=== PATIENT | male | born 1950 | race Caucasian/White ===

== ENCOUNTER 2019-03-29 12:39 | Inpatient (IN) | payer OTHER ==
[~2019-03-29] VITALS: Ht 172.7 cm; Wt 79.7 kg
[2019-03-29] MEDS ORDERED: LIPITOR 20 MG T20 M1 PO (13:55)
[2019-03-29] MEDS ORDERED: ASPIR 8181 M1 PO (13:55)
[2019-03-29] MEDS ORDERED: BENZTROPINE MES1 MG PO (13:56)
[2019-03-29] MEDS ORDERED: CYMBALTA20 MG PO (13:59)
[2019-03-29] MEDS ORDERED: NEURONTIN300 MG PO (14:01)
[2019-03-29] MEDS ORDERED: NORVASC 2.5 MG2.5 M1 PO (14:02)
[2019-03-29 14:04] VITALS: BP 103/70
[2019-03-29] MEDS ORDERED: ZYPREXA7.5 MG PO (14:05)
[2019-03-29] MEDS ORDERED: CENTRUM SILVER1 EAC5 PO (14:07)
[2019-03-29] MEDS ORDERED: FISH OIL 1,0001 EAC9 PO (14:08)
[2019-03-29] MEDS ORDERED: ESKALITH CR450 MG PO (14:09)
[2019-03-29] MEDS ORDERED: NAPROSYN500 M1 PO (14:11)
[2019-03-29] MEDS ORDERED: WELLBUTRIN XL300 MG PO (14:12)
[2019-03-29] MEDS ORDERED: BUPROPION XL300 MG PO (14:15)
[2019-03-29] MEDS ORDERED: TRAZODONE 150150 M1 PO (14:18)
--- NOTE | 2019-03-29 15:19 | NUR ---
144 Patient new admit here from [facility] for suicidal ideations to jump in front of a truck. Patient calm cooperative, states he has not been taking his medication as perscribed. Patient had 2 episodes of incontience and felt it was from his medication. Patient stop taking medication as perscribed. Patient denies SI at present during assessment with nurse, we will continue to monitor patient for safety and behaviors.
[2019-03-29 19:50] VITALS: BP 122/66
--- NOTE | 2019-03-30 01:16 | NUR ---
PATIENT HAS BEEN LAYING IN BED AND SLEEPING SINCE I CAME ON SHIFT AT 1900. HE DID AWAKE EASILY FOR ASSESSMENT AND HS MEDS. PATIENT IS SLEEPING IN HIS CLOTHES OF JEANS AND A SHIRT. DID GET HIM SCRUB PANTS AND GOWN BUT HE REFUSED THEM. PATIENT HAS BEEN COOPERATIVE AND HAS TAKEN HIS MEDS WHOLE. HE DENIES PAIN. HE DENIES SI/HI. HE HAS BEEN CALM TONIGHT. PATIENT IS NOT A FALL RISK. HIS BED IS IN LOW POSITION. HIS VSS. WILL CONTINUE TO MONITOR.
--- NOTE | 2019-03-30 08:00 | NUR ---
PT STILL RESTING AT THIS TIME. PT DIDN'T WANT TO EAT BREAKFAST.
[2019-03-30 08:59] VITALS: BP 114/73
[2019-03-30 09:00] VITALS: BP 114/73
--- NOTE | 2019-03-30 11:11 | NUR ---
PT UP AT THIS TIME. PT TOOK MEDS WITHOUT ANY ISSUES. PT LUNGS CLEAR. PT STILL IN HIS ROOM.
--- NOTE | 2019-03-30 12:00 | NUR ---
PT UP TO EAT LUNCH.
--- NOTE | 2019-03-30 13:20 | NUR ---
PT BACK TO ROOM AFTER HE ATE LUNCH. NO SOCIALIZING WITH OTHER RESIDENTS.
[2019-03-30 16:43] LABS: HEMATOCRIT 42.8 % (42.0-52.0); HEMOGLOBIN 13.9 gm/dL (14.0-18.0); MCH 30.2 pg (26.0-34.0); MCHC 32.5 g/dL (28.0-37.0); MCV 92.8 fL (80.0-100.0); RBC 4.61 mil/uL (4.50-6.00); RDW 13.1 % (10.5-14.5); WBC 5.7 thou/uL (4.0-11.0)
[2019-03-30 16:58] LABS: ALBUMIN 3.8 g/dL (3.4-5.0); CALCIUM 9.7 mg/dL (8.5-10.1); CREATININE 1.1 mg/dL (0.7-1.3); MAGNESIUM 1.7 mg/dL (1.8-2.4); POTASSIUM 4.3 mmol/L (3.5-5.1); TOTAL BILIRUBIN 0.4 mg/dL (<0.1-1.0); TOTAL PROTEIN 6.7 g/dL (6.4-8.2)
[2019-03-30 17:18] LABS: CHOLESTEROL 156 mg/dL (<200); HDL CHOLESTEROL 49 mg/dL (>40); LDL CHOLESTEROL 86 mg/dL (<100); TC:HDL 3.2 Ratio (Not establshd); TRIGLYCERIDE 106 mg/dL (<150); VLDL 21 mg/dL (<40)
[2019-03-30 19:33] VITALS: BP 118/77
[2019-03-30 21:45] VITALS: BP 118/77
--- NOTE | 2019-03-30 23:01 | H ---
[facility] [place] [address] HISTORY AND PHYSICAL Name: KWABENA GENAO Room #: 526B-B ADM IN M.R.#: [id number] Admission: 03/29/19 Attend Phys: Huy Banks DO Discharge: Date of : 46 Report #: [id number] THIS REPORT FOR: //name// CC: Huy Banks [facility] unknown DATE OF SERVICE: 03/29/2019 INPATIENT PSYCHIATRIC EVALUATION ATTENDING PSYCHIATRIST: Huy Banks DO CLAIM CLERK: Ronan Bear MD REASON FOR ADMISSION: Transferred from [facility] with thoughts of killing himself, depressed, putting himself in front of a truck. HISTORY OF PRESENT ILLNESS: This is a 68-year-old male stating he resides independently in the community around [place], [place]. He was brought by EMS to [facility] for suicidal ideation. He has a history of bipolar 2 disorder with depressed features. He reportedly was followed at [facility] by a psychiatrist for the last 1-2 months, missed last appointment. Reports he was hospitalized in the fall. He states to me he was at [facility]. He stopped medications four days ago following an episode of enuresis, though patient did not dsicuss enuresis with me. Denied substance or alcohol use, denied thoughts of self-harm. Two days ago, developed suicidality, was considering running in front of a truck. Had first psychiatric admission. Diminished appetite. REVIEW OF SYSTEMS: From [facility] ER: CONSTITUTIONAL: Negative for fever or weight loss with anorexia. EYES: Negative visual disturbance, vision loss, blurred vision, watery eyes, photophobia. HENT: Positive for edentulous, thus no teeth. Negative sinus pressure, nasal congestion, rhinorrhea, ear pain or hearing loss. RESPIRATORY: Negative cough, shortness of breath, wheezing, dyspnea on exertion. CARDIOVASCULAR: Negative for chest pain or dyspnea, palpitations or near syncope. GASTROINTESTINAL: Negative for abdominal pain, heartburn, nausea, vomiting or diarrhea, constipation, bloating or rectal bleeding. GENITOURINARY: Positive for enuresis and urinary incontinence. Negative for dysuria, hesitancy or hematuria. HEMATOLOGIC/LYMPHATIC: Negative increased bruising, bleeding, swollen glands. ENDOCRINE: Negative for excessive hunger, excessive sweating, cold intolerance, [facility] [address] [place] [address] HISTORY AND PHYSICAL Name: AlonELIEKWABENA Room #: 526B-B [facility] IN M.R.#: [id number] Admission: 03/29/19 Attend Phys: Huy Banks DO Discharge: Date of : 46 Report #: [id number] hair loss. MUSCULOSKELETAL: Negative muscle pain, joint pain, muscle weakness. INTEGUMENTARY: Negative rash, petechia or dryness. NEUROLOGICAL: Negative numbness, tingling, muscle weakness, headache or syncope. PSYCHIATRIC: As above. PAST MEDICAL HISTORY: Overweight with a BMI of 28.9, bilateral neuropathy of the upper extremities with marked atrophy of the thenar eminence bilaterally, flatulence, mixed hyperlipidemia, hypertension, Past Psychiatric History: insomnia, psychiatric complaints, bipolar 2 disorder, history of suicide attempt. PAST SURGICAL HISTORY: Includes left knee arthroscopy with partial medial and lateral meniscectomy and chondroplasty on 08/19/2018, and tonsillectomy in 1953. HOME MEDICATIONS: Aspirin 81 mg p.o. daily, atorvastatin 20 mg p.o. daily, Cogentin 1 tablet p.o. b.i.d., Centrum Silver, Cymbalta 90 mg daily, fish oil 1000 mg 2 tabs p.o. b.i.d., gabapentin 300 mg tablet p.o. t.i.d., lithium carbonate 450 mg p.o. t.i.d., naproxen 500 mg p.o. b.i.d., Norvasc 5 mg p.o. daily, trazodone 200 mg p.o. daily at bedtime p.r.n., Wellbutrin-XL 300 mg p.o. daily, Zyprexa 7.5 mg p.o. daily at bedtime. PHYSICAL EXAMINATION: Grossly normal. There was mild psychomotor retardation. ALLERGIES: No known allergies. SOCIAL HISTORY: Denies alcohol. Denies tobacco. Denies illicit substance use. EDUCATIONAL HISTORY: One year college. Denies being or having children, states his disease case manager is Jose Goins. FAMILY HISTORY: Says on the ER sheet, negative for CHF, COPD, cancer, dementia, and diabetes. LABORATORY DATA: From the [facility] is as follows: White count 7.75, H and H 14.3 and 41.7, and platelet count 256. Electrolytes; glucose 134, BUN 25, creatinine 1.1, sodium 138, potassium 4.2, chloride 109, bicarbonate 26, anion gap 3, AST 28, ALT 59, alkaline phosphatase 56, calcium 9.8, magnesium 2.2. TSH 2.9, GFR greater than 60. Marana level was 1.0 as on 03/28/2019. EKG done in [facility] showed ventricular rate 63, RI interval 170, QRS 98, QTc 407. On interview today, gait: Normal gait and station. The patient did not have clear dyskinetic movements of his oral area given his lack of teeth. [facility] [address] [place] [address] HISTORY AND PHYSICAL Name: KWABENA GENAO Yessica Room #: 526B-B ADM IN .R.#: [id number] Admission: 03/29/19 Attend Phys: Huy Banks DO Discharge: Date of : 46 Report #: [id number] MENTAL STATUS EXAMINATION: This is a well-developed, disheveled male, appearing at least stated age. Attention limited. Concentration limited. Speech slow. Thought process is linear and goal directed. Thought content, relative poverty of thought. Some psychomotor retardation. No psychomotor agitation. Denied SI or HI. Denied hopelessness, helplessness. Memory: [facility] Mental Status Exam was performed. The patient scored a total of 12/30. Deficits, wide range, 1 off for orientation, 2 off for delayed memory. Second highest score on verbal fluency, 0 for 4 o'clock drawing. Could only do three digits in reverse digit span, missed I think 3/4 questions on the paragraph recall. Insight impaired, judgment impaired. Fund of knowledge well below average. FORMULATION: A 68-year-old male brought in for suicidal ideation. The patient has a history of 5-year placement in residential in [place], which he states took all his money. Also, reports he has a disease case manager, Jose Goins at [facility] DIAGNOSES: Bipolar 2 disorder by history, unspecified depression, major neurocognitive disorder likely. OTHER MORBIDITIES: Include upper extremity neuropathy, hyperlipidemia, and hypertension. PLAN: Evaluate, stabilize, obtain collateral. Ms. Arias, my colleague this weekend, placed the patient on duloxetine 30 mg daily, Cogentin 1 mg p.o. daily, amlodipine 5 mg p.o. daily, gabapentin 300 mg p.o. t.i.d., trazodone 100 mg p.o. daily at bedtime, olanzapine 15 mg p.o. daily at bedtime, naproxen 500 mg p.o. b.i.d., lithium carbonate 450 mg p.o. b.i.d. The patient will need lithium level in 4 days. Time spent on interview, evaluation, and coordination of care is at least 60 minutes. STRENGTHS: Insured and has community education specialist. WEAKNESSES: Advancing age, likely dementia, poor family support. ESTIMATED LENGTH OF STAY: 10-14 days. <ELECTRONICALLY SIGNED> By: Huy Banks DO 03/30/19 2301 [id number] Huy Banks DO /nt
--- NOTE | 2019-03-30 23:38 | NUR ---
PATIENT HAS BEEN IN HIS ROOM TONIGHT SLEEPING. HE IS WITHDRAWN FROM OTHERS. HE IS A/OX3-4. PATIENT DID HAVE A SHOWER ON THE DAY SHIFT TODAY. HE IS POLITE AND COOPERATIVE. HE HAS NOT HAD A BM FOR A FEW DAYS AND HIS BOWEL SOUNDS ARE HYPOACTIVE. MILK OF MAGNESIA GIVEN PO TO PATIENT. WILL MONITOR FOR RESULTS. PATIENT DOES TAKE HIS MEDS WHOLE. PATIENT AMBULATES ON HIS OWN AND IS CONTINENT OF B&b. PATIENT IS SLEEPING ALOT AND EATING WELL. HAS OCCASIONAL ACHE IN LEFT KNEE. PAIN RELIEVED WITH REPOSITIONING TONIGHT AND THEN HE HAD NAPROSYN IN HIS NIGHT MEDS. PATIENT DOES HAVE TREMORS IN HIS HANDS. BED IN LOW POSITION. CONTINUING TO MONITOR.
[2019-03-31 06:48] LABS: HEMATOCRIT 40.6 % (42.0-52.0); HEMOGLOBIN 13.3 gm/dL (14.0-18.0); MCH 30.1 pg (26.0-34.0); MCHC 32.7 g/dL (28.0-37.0); MCV 92.1 fL (80.0-100.0); RBC 4.41 mil/uL (4.50-6.00); RDW 13.1 % (10.5-14.5); WBC 4.7 thou/uL (4.0-11.0)
[2019-03-31 06:57] LABS: CALCIUM 9.2 mg/dL (8.5-10.1); MAGNESIUM 2.2 mg/dL (1.8-2.4); POTASSIUM 4.3 mmol/L (3.5-5.1)
[2019-03-31 08:30] VITALS: BP 142/79
--- NOTE | 2019-03-31 08:30 | NUR ---
PT UP AND OUT FOR BREAKFAST THIS AM. PT DOESN'T SOCIALIZE VERY MUCH, EATS AND GOES BACK TO HIS ROOM.
[2019-03-31 09:46] VITALS: BP 142/79
--- NOTE | 2019-03-31 14:14 | NUR ---
RAFAT met with pt in her office. He said that he was admitted to [facility] for SI. SW asked if he had a plan, and he said his plan was to walk [place] the [place] [place] ([address] and get hit by a car. He said he has had struggles with BiPolar depression since he was 14. He said he mostly feels okay because he walks 2-3 miles a day and lifts weights at home, but when his depression hits he has no energy to do those things. He said what kept him from doing so is his Brother; he has a close relationship with his oldest brother and he does not want him to be left to deal with pt taking his life. He said he does not currently have SI and feels better that way but is still experiencing some depression. He currently receives services at [facility] and gave his casemanagers information which is Jose Goins [phone]. While together RAFAT and pt contacted Jose, who did not answer. Pt said when he calls back he would like RAFAT to talk with Jose. He says overall he likes Jose. He is unsure if he wants RAFAT to talk with his brother only because he does not want his brother to worry about him. SW asked pt about his social life and he said he doesnt' really have one. He said he is Judaism and used to love going to confucianism but hasn't been; he wants to become more social when he "gets his stuff together." SW suggested to pt that maybe getting social now can help combat his depression. He said he will think about it. RAFAT received a call from Jose Goins (pts major case detective) who said he has been trying to contact pt for a couple days. He said he can help with pt being more social and agrees that would be a big help for pt. He said that pt is due for another psych appt in Mid April, but that SW can contact [facility] and get a sooner appt for pt. He said if pt does not d/c by Saturday he will come visit pt on Saturday. If he is not here, he will go visit pt at home first thing Saturday morning. SW team will continue to follow pt during his stay on this unit.
--- NOTE | 2019-03-31 16:43 | NUR ---
PT HAS BEEN IN ROOM MOST OF DAY EXCEPT FOR MEALS. PT ISOLATES IN ROOM, SOCIAL WITH STAFF, BUT NOT OTHER RESIDENTS EXCEPT FOR MEALS.
[2019-03-31 19:44] VITALS: BP 123/58
[2019-04-01 00:15] VITALS: BP 123/58
--- NOTE | 2019-04-01 03:29 | NUR ---
PT ISOLATING IN ROOM. SUPERFICIAL BUT COOPERATIVE. DEPRESSED WITH SAD EXPRESSION. MINIMAL INTERACTION WITH STAFF. TOOK HS MEDS PRESCRIBED W/O PROBLEM. HAS SLEPT WELL THROUGH THE NIGHT.
[2019-04-01 08:14] VITALS: BP 131/80
[2019-04-01 09:28] VITALS: BP 131/80
[2019-04-01 10:47] VITALS: BP 131/80
--- NOTE | 2019-04-01 11:54 | NUR ---
ASSUMED CARE AT 0700. PATIENT IS ALERT AND ORIENTED X4, BUT FORGETFUL. PATIENT HAS DX OF DEPRESSION/DEMENTIA. NO BEHAVIORS NOTED. UP IN THE MOLINA WAY TO THE DINING ROOM FOR MEALS. LUNGS ARE CLEAR. ABD IS SOFT WITH BSX4. LAST BM RECORDED WAS 03/28/19. PLAN LAXATIVE IF NO BM TODAY. NO EDEMA NOTED. FALL AND SAFETY PROTOCOLS IN PLACE. DENIES ANY PAIN. ATTENDED GROUP. WILL CONTINUE TO MONITER.
[2019-04-01 19:31] VITALS: BP 129/74
[2019-04-01 21:00] VITALS: BP 129/74
--- NOTE | 2019-04-01 23:49 | NUR ---
PATIENT IN BED TONIGHT WHEN CAME ON SHIFT. HE IS A/O X 4. HE HAS NOT HAD A BM SINCE BEING HERE. MOM PRN GIVEN AT HS. PATIENT STATES HE ATTENDED ALL BUT ONE GROUP TODAY. HE DENIES PAIN. VSS. BED IN LOW POSITION. POSITIVE OUTLOOK ON LIFE TONIGHT. CONTINUE TO MONITOR.
--- NOTE | 2019-04-02 05:36 | NUR ---
PATIENT IS STILL SLEEPING COMFORTABLY IN BED. HAS NOT BEEN UP ALL NIGHT. CONTINUING TO MONITOR.
[2019-04-02 09:18] VITALS: BP 119/71
--- NOTE | 2019-04-02 10:35 | NUR ---
CONSTRICTED AFFECT AND MINIMAL VERBAL RESPONSES DURING INITIAL AM ASSESSSMENT-DYSPHORIC MOOD-APPEARS SLIGHTLY UNKEMPT-UNSHAVEN CLOTHING RUMPLED WHEN ASKED IF WOULD LIKE TO GET SHAVE OR CLEANED UP STATES "NO STATING NOT REALLY FEELING UP TO IT" WHEN INQUIRED FURTHER RE THIS IS VAGUE C/O GENERAL MALAICE AND UNABLE TO IDENTIFY ANY SPECIFIC SYMPTOMS. DID ATTEND AM GROUP WITH PROMPTING BUT LITTLE NOTED INTERACTION WITH PEERS OR PARTICIPATION IN GROUP. DENIES SI/SH/HI.
[2019-04-02 19:22] VITALS: BP 98/55
--- NOTE | 2019-04-03 05:31 | NUR ---
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 HAS BEEN ISOLATING TO ROOM, SLEEPING ENTIRE SHIFT. PLEASANT AND COOPERATIVE WHEN WOKEN FOR ASSESSMENT AND FOR MEDS. AFFECT FLAT, MOOD DEPRESSED. DENIES PAIN THIS SHIFT. NO C/O. NO APPARENT DISTRESS. WILL CONTINUE TO MONITOR
--- NOTE | 2019-04-03 09:43 | NUR ---
SW contacted pt's manager rn case Jose Goins. No answer. Lft message. SW team will continue to follow pt during his stay on this unit.
--- NOTE | 2019-04-03 12:21 | NUR ---
RAFAT received a call from Jose Goins who said he would like to visit with pt today on his way home; it will be sometime in the afternoon. RAFAT okayed this with the psych doctor for him to visit even outside of visin hours since he is pt's case finisher and a part of his d/c plan. RAFAT provided an update to pt's nursing staff and SW team. RAFAT contacted the [facility] in [place] and scheduled a crisis appt for pt on 04/14 @ 1700. RAFAT team will continue to follow pt during his stay on this unit.
--- NOTE | 2019-04-03 17:20 | NUR ---
HAS BEEN WITHDRAWN TO ROOM DESPITE PROMPTING AND ENCOURAGEMENT TO COME OUT FOR GROUPS-DID COME FOR APPROX 15 MINUTES OF AM RT GROUP BEFORE RETURNING TO ROOM. WILL VISIT WITH ROOMMMATE AND DOES COME OUT TO EAT MEALS WHEN PROMPTED. REFUSED SHOWER STATING HE HAD CLEANED UP AT [facility] TODAY BUT DID ALLOW THIS NURSE TO SHAVE HIM-APPETITE GOOD. SLEEPING EXCESSIVLY,REQUIRES QUEING AND PHYSICAL ASSIST FOR ALL ADLS' DOES NOT INITIATE THEM ON OWN. ORIENTED TO PLACE,SELF-NO TO DATE. GAIT SLIGHTLY UNSTEADY AT TIMES WHEN GOING LONG DISTANCES IN HALLWAY. CONSTRICTED AFFECT. DENIES SI/SH.
[2019-04-03 20:03] VITALS: BP 127/85
--- NOTE | 2019-04-04 03:01 | NUR ---
ASSUMED CARE OF PATIENT ON 04/03/2019 AT APPROXIMATELY 1915. UPON ONE TO ONE WITH THIS PATIENT, HE WAS IN HIS ROOM ISOLATING TO HIMSELF AND NOT GOING OUT TO JOIN THE MILIEU. HE WAS OBSERVED INTERACTING MINIMALLY WITH HIS ROOMMATE. HE WOULD NOT ELABORATE MUCH ON FEELINGS OR THOUGHTS BUT DENIES DEPRESSION ET AXNIETY. HE DENIES SI HI OR HALLUCINATIONS. HE DID NOT REPORT ANY MEDICAL CONCERS NOR DID HE APPEAR IN DISTRESS. NURSING WILL MAINTAIN Q12 CHECK TO ENSURE SAFETY AT ALL TIMES.
[2019-04-04 08:17] VITALS: BP 133/61
[2019-04-04 09:18] VITALS: BP 133/61
--- NOTE | 2019-04-04 12:00 | NUR ---
ASSUMED CARE AT 0700 THIS MORNING. PT. STABLE. HE CONTINUES TO BE ISOLATIVE IN HIS ROOM. ATE ON THE UNIT THE RETURNED RIGHT AWAY TO HIS ROOM. TOOK A SHOWER THIS MORNING.
[2019-04-04 19:06] VITALS: BP 144/73
--- NOTE | 2019-04-05 00:17 | NUR ---
ASSUMED CARE OF PATIENT ON 04/04/2019 AT APPROXIMATELY 1915. DURING INITIAL INTERACTION WITH PATIENT HE WAS IN HIS ROOM, IN BED WITH EYES CLOSED. THEY OPENED SPONTANEOUSLY TO THIS NURSES VOICE. HE REPORTS 'IM DOING PRETTY GOOD.' THIS NURSE ENCOURAGED PATIENT TO JOIN MILIEU AND EAT SNACK, BUT PATIENT DECLINED. PATIENT IS MEDICATION COMPLIANT. AFTER ADMINISTRATION, PATIENT THEN LAYED BACK DOWN AND CLOSED EYES. HE DID NOT REPORT MEDICAL CONCERNS NOR DID HE APPEAR IN DISTRESS. NURSING WILL MAINTAIN ALL PRECAUTIONS TO ENSURE SAFETY AT ALL TIMES.
[2019-04-05 07:52] VITALS: BP 97/64
--- NOTE | 2019-04-05 09:19 | NUR ---
ASSUMED CARE AT 0700 THIS MORNING. PT. IN HIS BED, REFUSED TO GET UP FOR BREAKFAST. HE DID, HOWEVER, TAKE HIS MEDICATIONS WITHOUT DIFFICULTY. HE WAS COMPLIANT WITH ASSESSMENT. HAS LOUNGED IN BED THIS MORNING. DENIES PAIN OR DISCOMFORT. STATES BOWELS MOVED YESTERDAY.
[2019-04-05 09:28] VITALS: BP 97/64
[2019-04-05 19:18] VITALS: BP 116/62
[2019-04-05 21:30] VITALS: BP 116/62
--- NOTE | 2019-04-06 04:02 | NUR ---
PATIENT HAS BEEN IN BED ALL NIGHT. HE HAS BEEN CALM AND COOPERATIVE. ORDER OBTAINED FOR MAG [employer] QD PRN FOR CONSTIPATION. PATIENT TO D/C TODAY TO HOME WITH . DENIES PAIN. BED IN LOW POSITION. CONITINUING TO MONITOR.
[2019-04-06 07:05] VITALS: BP 148/84
[2019-04-06 11:24] VITALS: BP 148/84
[2019-04-06] MEDS ORDERED: CYMBALTA30 MG PO (11:51)
[2019-04-06] MEDS ORDERED: GABAPENTIN 100100 MG PO (11:51)
[2019-04-06] MEDS ORDERED: TRAZODONE HCL100 MG PO (11:52)
[2019-04-06] MEDS ORDERED: ZYPREXA 5 MG TAB5 M1 PO (11:53)
[2019-04-06] MEDS ORDERED: ESKALITH300 MG PO (11:53)
[2019-04-06] MEDS ORDERED: BENZTROPINE MES1 MG PO (11:54)
[2019-04-06] MEDS ORDERED: COLACE 100 MG100 MG PO (11:54)
[2019-04-06 12:45] VITALS: BP 148/84
[2019-04-06 13:15] VITALS: BP 148/84
--- NOTE | 2019-04-06 13:20 | NUR ---
DISCHARGE INSTRUCTIONS REVIEWED WITH PATIENT-INCLUDING MEDICATIONS DOSES TIMES OF ADMINISTRATION AND RX-FOLLOW UP RECOMMENDATIONS AND APPOINTMENTS REVIEWED AND STSTES UNDERSTANDING DENIES QUESTIONS AND CONCERNS RE FOLLOW UP-. SUICIDE PREVENTION NUMBERS PROVIDED. PT STATES "FEELS GOOD" AND IS "READY TO GO" SMILING AND EXPRESSING APPRECIATION OF CARE ON DC. TRANSPORTED OFF UNIT AT APPROX 1255 BY THIS RN IN TO AWAITING TAXI VIA
--- NOTE | 2019-04-06 14:33 | NUR ---
RAFAT D/C note RAFAT contacted KATHARINE zuly and scheduled a ride for pt at 1300. RAFAT faxed d/c to [facility] at [phone]. RAFAT gave pt a printout of when his next psych appt is which is 04/14 @6550. No other needs for RAFAT team to address at this time.
--- NOTE | 2019-04-09 19:58 | D ---
[facility] [place] [address] [place] [address] DISCHARGE SUMMARY Name: KWABENA GENAO Room #: 526B-B [facility] IN M.R.#: [id number] Admission: 03/29/19 Attend Phys: Huy Banks DO Discharge: 04/06/19 Date of : 46 Report #: [id number] THIS REPORT FOR: //name// CC: Huy Banks [facility] unknown DATE OF SERVICE: 04/06/2019 INPATIENT PSYCHIATRIC DISCHARGE SUMMARY ATTENDING PHYSICIAN: Huy Banks DO. HEALTH INFORMATION TECHNICIAN: Lex Read M.D. DISCHARGE DIAGNOSES: Bipolar 1 disorder, most recent episode depressed, severe, improved, mild neurocognitive disorder. MEDICAL COMORBIDITIES: Hypertension, hyperlipidemia, GERD. Discharged on a regular diet. ACTIVITY LEVEL: As tolerated. The patient receives case management from [facility], his community case manager is Jose Goins, Jose Goins did not present for a family caregiving meeting as I had hoped this past Saturday. DISCHARGE MEDICATIONS: Gabapentin 300 mg p.o. t.i.d. for neuropathy, duloxetine 60 mg p.o. daily for depression, trazodone 100 mg p.o. at bedtime for sleep, olanzapine 15 mg p.o. at bedtime for augmentation of antidepressant, mood stabilization, lithium carbonate 300 mg p.o. b.i.d., this was decreased from 450 mg p.o. b.i.d. due to excessive tremor and blood level of 1.2, Cogentin 1 mg p.o. daily, docusate 100 mg p.o. b.i.d. Also, continuing aspirin 81 mg p.o. daily for cardioprotection, amlodipine besylate 5 mg p.o. daily for hypertension, naproxen 500 mg p.o. b.i.d., actually this should only be used p.r.n. because he is on lithium and can cause difficulty maintaining even blood level. REASON FOR ADMISSION: Back on 03/29/2019 transferred from [facility] with thoughts of killing himself, throwing himself in front of truck. HOSPITAL COURSE: The patient was admitted to Geriatric Psychiatry Unit. The patient had some findings concerning for a neurodegenerative disorder; however, at the moment is needing minimal requirements to live in the community with some assistance. During the course of hospitalization, mood improved, sleep improved, appetite was good. At the day of discharge, he was not suicidal or homicidal, felt to be ready for lower level of care. [address] [address] DISCHARGE SUMMARY Name: KWABENA GENAO Room #: 526B-B [facility] IN [facility].#: [id number] Admission: 03/29/19 Attend Phys: Huy Banks DO Discharge: 04/06/19 Date of : 46 Report #: [id number] PHYSICAL EXAMINATION: VITAL SIGNS: On the day of discharge, temperature 36.6, pulse 50, respirations 18, BP 148/84. MUSCULOSKELETAL: Normal gait and station. The patient is edentulous. MENTAL STATUS EXAMINATION: This is a well-developed, fairly nourished male, appearing stated age. Attention fair. Concentration fair. Speech is normal rate. Thought process linear and goal oriented. Thought content, focused on discharge. No psychomotor agitation, no psychomotor retardation. Denied SI or HI. Denied hopelessness, helplessness. Denied auditory, visual, or tactile hallucinations. Memory not formally tested. Insight fair to limited. Judgment fair. Fund of knowledge below average. LABORATORY DATA: This admission, 03/31/2019, last H and H was 13.3 and 40.6, white count 4.7, platelet count 226; 03/31/2019 on the CMP: BUN was 23, anion gap 2. Otherwise, within normal limits. potassium 4.3. Toxicology from 04/02/2019 as stated was 1.2 on 450 mg twice per day. PROGNOSIS: For this patient is guarded given the likelihood of involving neurodegenerative disorder, limited social support. <ELECTRONICALLY SIGNED> By: Huy Banks DO 04/09/191957 51 11 Huy Banks DO /nt
== END 2019-04-06 13:00 | disposition home or self-care (01) | DRG 885 ==
LOC: SBH 12:39
PROVIDERS: Internal Medicine; ADMIT Psychiatry & Neurology Psychiatry
DX: F31.4 Bipolar disorder, current episode depressed, severe, without psychotic features (principal); F01.50 Vascular dementia, unspecified severity, without behavioral disturbance, psychotic disturbance, mood disturbance, and anxiety; R45.851 Suicidal ideations; I10 Essential (primary) hypertension; K21.9 Gastro-esophageal reflux disease without esophagitis; G62.9 Polyneuropathy, unspecified; M19.90 Unspecified osteoarthritis, unspecified site; G47.00 Insomnia, unspecified; E78.2 Mixed hyperlipidemia; Z91.5 Personal history of self-harm; Z79.82 Long term (current) use of aspirin; Z79.899 Other long term (current) drug therapy; Z80.9 Family history of malignant neoplasm, unspecified; Z82.49 Family history of ischemic heart disease and other diseases of the circulatory system; Z83.6 Family history of other diseases of the respiratory system
CPT/HCPCS: 10880

== ENCOUNTER 2019-10-15 10:03 | Inpatient (IN) | payer OTHER ==
[~2019-10-15] VITALS: Ht 175.3 cm; Wt 79.9 kg
[~2019-10-15 10:03] MED LIST: ASPIR 8181 M1 PO; BENZTROPINE MES1 MG PO; BUPROPION XL300 MG PO; CENTRUM SILVER1 EAC5 PO; COLACE 100 MG100 MG PO; CYMBALTA20 MG PO; CYMBALTA30 MG PO; ESKALITH CR450 MG PO; ESKALITH300 MG PO; FISH OIL 1,0001 EAC9 PO; GABAPENTIN 100100 MG PO; LIPITOR 20 MG T20 M1 PO; NAPROSYN500 M1 PO; NEURONTIN300 MG PO; NORVASC 2.5 MG2.5 M1 PO; TRAZODONE 150150 M1 PO; TRAZODONE HCL100 MG PO; WELLBUTRIN XL300 MG PO; ZYPREXA 5 MG TAB5 M1 PO; ZYPREXA7.5 MG PO
[2019-10-15 11:07] VITALS: BP 11/68
--- NOTE | 2019-10-15 11:21 | NUR ---
68 YEAR OLD MALE ARRIVES TO UNIT VIA CART ACCOMPNIED BY AMBULANCE PERSONEL FROM [facility] ER. REPORTED TO HAVE ARRIVED TO ER ON SATURDAY WITH REPORTED SUICIDAL IDEATION WITH PLAN TO WALK INTO TRAFFIC. UPON ARRIVAL TO UNIT IS COOPERATIVE WITH ADMISSION ASSESSMENT VS/HT/WT OBTAINED AND ARE STABLE. MILDLY CONSRICTED AFFECT. RESPONSES ARE APPROPRIATE AND ABLE TO PROVIDE GOOD PART OF MEDICAL HX. UNABLE TO STATE ALL OF MEDS STATING "I CAN'T REMEMBER ALL OF THEM" GAIT STEADY WITHOUT ASSISTIVE DEVICES. DOES REPORT SOME MILD LEFT KNEE PAIN RATED A 4 ON 1-10 SCALE.
[2019-10-15 19:15] VITALS: BP 108/69
--- NOTE | 2019-10-15 21:52 | H ---
[facility] [place] [address] HISTORY AND PHYSICAL Name: KWABENA GENAO Room #: 523B-B ADM IN M.R.#: [id number] Admission: 10/15/19 Attend Phys: Huy Banks DO Discharge: Date of : 46 Report #: [id number] THIS REPORT FOR: cc: ANTONIA - Family physician unknown FAM - Family physician unknown Huy Banks DO ~ CC: Huy KNIGHT unknown DATE OF SERVICE: 10/15/2019 INPATIENT PSYCHIATRIC EVALUATION ATTENDING PHYSICIAN: Huy Banks DO BRAKE PRESS OPERATOR: Ronan Bear MD REASON FOR ADMISSION: Transfer from [facility] Emergency Room for suicidality. SOURCES OF INFORMATION: [facility] records, screen from [facility], interview with the patient, historical records from 03/2019 when the patient had a Geriatric Psychiatry admission here at [facility]. HISTORY OF PRESENT ILLNESS: This is a 69-year-old single male living in the community by himself, [place], [place]. The patient was brought to [facility] yesterday by [facility] social service director. Apparently, he voiced suicidal ideation earlier in the day and was brought for voluntary placement. He says he has been depressed for several days. He thought about running in front of a semi. This has been the same plan of suicide he had previously back in March of this year. In the past, I think in 2007, he had a suicide attempt by carbon monoxide with vehicle exhaust. He denied medical complaints at this time. REVIEW OF SYSTEMS: From [facility] ED was negative on a 10-point. ALLERGIES: Otherwise, no known allergies. PAST MEDICAL PROBLEMS: Hypertension, bilateral neuropathy of the upper extremities, mixed hyperlipidemia and primary insomnia. BMI looks pretty normal to me. PAST SURGICAL HISTORY: Left knee arthroscopy with partial medial and lateral meniscectomy and chondroplasty on 08/19/2018 at 68 years of age. He had a tonsillectomy in 1953 at 2 years of age. [facility] [address] [place] [address] HISTORY AND PHYSICAL Name: KWABENA GENAO Room #: 523B-B ADM IN ..#: [id number] Admission: 10/15/19 Attend Phys: Huy Banks DO Discharge: Date of : 46 Report #: [id number] FAMILY HISTORY: He has a family medical history of hypertension in his father and mother. SUBSTANCE USE HISTORY: Denied. SOCIAL HISTORY: He reportedly walks daily 3 miles, so that is good. PHYSICAL EXAMINATION: Was grossly normal at [facility]. I did do a medical clearance workup and I will review that briefly here. Urine drug screen was negative. Urinalysis was within normal limits. Glucose 110, BUN 27, creatinine 0.9. Sodium 148, potassium 4.2, chloride 109, bicarbonate 28, anion gap 3, calcium 9.3. Alcohol less than 3. Magnesium 2.2, which I believe is normal. TSH 0.853, GFR was greater than 60, blood count slightly low, leukocytes with a white count of 3.8, H and H 14.1 and 40.9, platelet count 205. ADDITIONAL INFORMATION: From the [facility] screen as follows and pretty much cloudiness. Presented to the ED after endorsing SI, expressing that he feels severely depressed. The patient is accompanied by two of his [facility] team members, so he does have case management. The patient endorses depressed mood and fleeting SI on 10/12/2019; however, denied active SI. Medications were modified on 09/25/2019 during the patient's most recent hospitalization and he continues to titrate up on Lamictal. I am not exactly sure where he was hospitalized on 09/25/2019, but that demands more exploration. Anyways, the patient reportedly ran out of his medications this past weekend resulting in increasing symptomatology. During the assessment the patient endorses active SI with plan to "jumping in front of a big transport truck, this is the only plan I have ever had" and expresses inability to be free of depression, verbalizes how ____ become for him. The patient shares ruminating and obsessive thoughts that this "could be the end, I guess suicide " and stating "I don't know if I am ever going to get better function like I used to." The patient acknowledges having a conversation with his treatment team yesterday, discussing on his depressive symptoms, plan to divert hospitalization; however, shares it came on all of a sudden in day. He is unable to identify specific triggers and reports that his brother has recently expressed his concern and worry for the patient as he viewed him as being depressed and not functioning well. The patient endorses an increased lack of energy and fatigue; however, in contrast, reports he is sleeping well because of prescribed trazodone. He states he has been taking his medications as prescribed and believes that the regimen incorrect ''or why else would I be feeling this way." Denied auditory or visual hallucinations and alcohol use, though he admitted to me a week ago drinking a beer. He identifies decrease in appetite onset 1 week ago, eating one meal per day, remaining hydrated, showering every couple of days. The patient shares the last time he recalls [facility] [address] [place] [address] HISTORY AND PHYSICAL Name: KWABENA GENAO Room #: 523B-B ADM IN ..#: [id number] Admission: 10/15/19 Attend Phys: Huy Banks, Discharge: Date of : 46 Report #: [id number] feeling happy was in 11/2018 when he travel to the [place] with his brother. Interestingly, he told me he [place] in [place], [place]. He expressed concerns with returning home today, "I won't do well if I go home" and hospitalization was recommended. Vital signs here at [facility]: Temperature 36.9, pulse 65, respirations 12. I think the BP is incorrect, it says 11/68 and that is non-compatible with life. Let me see what it was at [facility], 141/74, pulse 57, respirations 16, temperature 36.1 there, so I think [facility] had the more accurate blood pressure in this case. Physical exam, normal gait and station. MENTAL STATUS EXAMINATION: This is a well-developed, somewhat unkempt, unshaven male. He is edentulous, appearing older than stated age. Attention fair. Concentration limited. Speech is normal rate. Thought process is linear and goal directed. Thought content focused on ameliorating his depression. No psychomotor agitation, slight psychomotor retardation. Denied suicidal or homicidal ideation currently. Denied auditory, visual, or tactile hallucinations. Denied helplessness. Denied hopelessness. Memory not formally tested, but will be with a [facility] Mental Status examination. Insight is limited. Judgment limited. Fund of knowledge, no greater than average. FORMULATION: A 69-year-old male, client of [facility], who was brought by his community care team sounds like basically an assertive community treatment team for Emergency Room evaluation due to active suicidal ideation with plan to end his life. He has a number of complicating factors including limited social support. It sounds like some compliance issues. DIAGNOSES: At this time, bipolar 1 disorder, most recent episode depressed, chronic mental illness. His medical problems include hypertension and neuropathy. PLAN: The patient is unsure of his exact medication regimen. We did get a sheet from [facility]. I think we need to simplify medications for purposes of [place] here, we will keep him on escitalopram 10 mg p.o. daily, duloxetine is something that he has probably been on secondary to his pain, so I am going to stop that. We will continue aspirin 81 mg daily, Norvasc 5 mg p.o. daily, trazodone 100 mg at bedtime. We will continue his atorvastatin 20 mg at bedtime. Gabapentin was at an [id number]-qon-yuay 100 mg twice a day, we will make that 200 mg 3 times a day. We will evaluate and stabilize. I would like to reach out to his treaters at [facility]. Also, we will need to repeat a cognitive screen. I am concerned about a neurodegenerative disorder in light of some of the accountability issues we are having and I did look back, he had a SLUMS score of 12 at the beginning of his March hospitalization here. [address] [address] HISTORY AND PHYSICAL Name: KWABENA GENAO Room #: 523B-B ADM IN M.R.#: [id number] Admission: 10/15/19 Attend Phys: Huy Banks DO Discharge: Date of : 46 Report #: [id number] Time spent on interview, review of records, coordination of care is at least 60 minutes, greater than 50% of this time was spent on counseling and coordination of care. <ELECTRONICALLY SIGNED> By: Huy Banks DO 10/15/19 [id number] Huy Banks DO /nt
[2019-10-15 22:55] VITALS: BP 108/69
--- NOTE | 2019-10-16 02:08 | NUR ---
Assumed care of patient this pm shift. Patient is in good spirits, calm and cooperative. Patients affect is euthymic. Patient states that he would like to know more about things that could help his bipolar diagnosis such as ketamine. Patient was encouraged to discuss these things with the doctor. Patient is medication adherent and takes medications whole with thin fluids. Patient is ambulatory with a steady gait and is not a falls risk. Patient denies pain. Patient denies hi/si. Patients assessment shows no signs of acute distress. Patient has no other concerns than finding the best treatment for his condition and was happy to discuss this. We will continue to monitor patient per hospital policy.
[2019-10-16 07:30] VITALS: BP 115/75
--- NOTE | 2019-10-16 12:30 | NUR ---
Alert and orientated X4. Denies SI/HI. Calm and compliant, cooperative with meds. Spent most of AM in dining room with peers watching TV. Requested Tylenol for L knee pain. Stated pain is sporadic, sharp. When Tylenol given pain was "0" but he stated it would increase to 9 for short periods. Also has questions about ketamine. Breath sounds clear t/o. Reg HR auscultated. Color pink with brisk capillary refill and palpable peripheral pulses. Independent with voiding. Active bowel sounds over soft, rounded abdomen. States last BM was several days ago, prior to admission. Will give Milk of Magnesia as PRN after lunch. Ambulates with regular, steady gait.
--- NOTE | 2019-10-16 12:41 | NUR ---
Assess due to high nutrition risk identified. Admit to [facility] for bipolar disorder. Visit during lunch, pt has no teeth, does not wear any dentures and appears to struggle with mastication. He did agree to trial [facility] altered chopped diet. Able to give some preferences and would like to have karolina ensure-so ordered. States usual wt 185 lb about a yr ago. Wt hx reviewed in computer and was 177 lb in Mar and now 175 lb, so stable x 6 mo. Appetite is good. Will follow wts and intake trends weekly. Low nutrition risk
[2019-10-16 20:02] VITALS: BP 114/69
--- NOTE | 2019-10-16 22:18 | NUR ---
PT ASLEEP IN ROOM UPON ARRIVAL TO SHIFT. PT AWAKENED FOR ASSESSMENT AND MEDICATIONS. PT REQUESTED [facility] FOR SNACK. FLAT AFFECT, GOOD EYE CONTACT, PT VERY POLITE SAYING THANK YOU OFTEN.
[2019-10-17 07:49] VITALS: BP 113/82
--- NOTE | 2019-10-17 09:15 | NUR ---
Assumed care 0700. Compliant with medications. Self fed breakfast. Isolates to room.
--- NOTE | 2019-10-17 18:11 | NUR ---
Compliant with medications. beginning to socialize with select male peers. Given Tyleno. and 1 with partial relief. Diclofenac to left knee with relief. Rated mood 8/10 0=good mood 10 = worst mood. States he is feeling depressed and does not have an idea why what triggers his depression.
[2019-10-17 19:26] VITALS: BP 126/81
--- NOTE | 2019-10-17 22:49 | NUR ---
Care assumed of patient at 1915: Patient sleeping in bed at start of shift. Easily aroused. Patient calm, pleasant and cooperative. Patient came to the dayroom for HS snack. Patient confused and forgetful. Disorganized, brief attention span. Patient alert and oriented to name only. Patient having expressive aphasia. When asked current place, he could not answer. When provided the option of school, bank or hospital, patient started to name years "the 60s? 70s? I don't know". Patient was oriented to current location, time and situation. When oriented he would state "Oh, I know". Patient reports pain to left knee when walking. Denies wanting pain medication. Reports better after massage provided. Denies SI/HI/AH/VH. Reports anxiety but was unable to rate. Denies depression. Took HS medication whole without difficulty. Ate 100% HS snack. Patient was able to retire to bed and fall asleep without difficulty. Resting quietly at this time.
[2019-10-18 07:43] VITALS: BP 117/75
--- NOTE | 2019-10-18 12:24 | NUR ---
0700 ASSUMMED CARE OF PATIENT PATIENT IN BED AT THAT TIME. PATIENT IN DAYROOM FOR BREAKFAST. DENIED NEEDS AT THAT TIME. 0850 MEDICATION TAKEN WHOLE WITHOUT DIFFICULTY. PATIENT TO BEDROOM AFTER BREAKFAST. 1200 PATIENT LYING IN BED AWAKE. PATIENT STATES HAVING DEPRESSION OFF AND ON WITH PAST SI THOUGHTS. NO SI THOUGHTS OR PLANS AT THIS TIME. PATIENT C/O DEPRESSION DUE TO SITUATION AND POSSIBLY GOING TO FACILITY. PATIENT STATES "I WAS LIVING AT HOME BEFORE GOING TO ER, HOPING TO BE ABLE TO GO BACK". PATIENT UNDERSTANDS REASON FOR ADMISSION STATING THAT HIM VOICING SI GOT HIM HERE. WILL CONTINUE TO OBSERVE
[2019-10-18 19:42] VITALS: BP 139/83
[2019-10-18 21:30] VITALS: BP 139/83
--- NOTE | 2019-10-18 23:05 | NUR ---
PATIENT STAYED IN HIS ROOM TONIGHT. HE WAS WITH C/O LEFT KNEE BOTHERING HIM. HE STATES IT ACHED. PATIENT GIVEN TYLENOL 650MG PO WITH HIS HS MEDS. PATIENT ALSO HAD GABAPENTIN A SCHEDULED HS MED TOO. PATIENT STATES HE IS NOT SUICIDAL BUT SAYS HE IS FEELING DEPRESSED TONIGHT. HE STATES HE HAS A HARD TIME TONIGHT REMEMBERING HIS GOOD DAYS. HE DENIES SUICIDAL THOUGHTS BUT STATES HE JUST FEELS HOPELESS. HE STATES HE CAN'T SHUT HIS THOUGHTS OFF OF SAD THOUGHTS. TALKED WITH PATIENT FOR AWHILE AND HE STATES HE FELT BETTER TALKING ABOUT HIS FEELINGS. TRAZADONE GIVEN FOR SLEEP. PATIENT IS SLEEPING AT THIS TIME. ROUTINE ROUNDS TO ASSESS SAFETY AND STATUS OF PATIENT.
[2019-10-19 07:25] VITALS: BP 113/71
--- NOTE | 2019-10-19 09:30 | NUR ---
0700 ASSUMED CARE OF PATIENT, PATIENT LYING IN BED WITH EYES CLOSED. 0800 PATIENT REFUSES TO COME OUT FOR BREAKFAST STATES "I HAD A ENSURE ALREADY". PATIENT WANTS TO CONTINUE LAYING IN BED AND REFUSES TO ATTEND GROUP. 0935 'S ORDERS FOR ROOM LOCK OUT DURING MEALS AND GROUPS RECIEVED.
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
--- NOTE | 2019-10-19 18:36 | NUR ---
PATIENT RESTING IN BED, REFUSED HIS DICLOFENAC TOPICAL TO HIS KNEE. PATIENT STATES THE OLANZAPINE 5MG PO DID NOTHING FOR HIM AND ASKS THAT HE BE GIVEN SOMETHING ELSE. CONTINUES TO FEEL IF HIS THOUGHTS ARE ACCELERATED STILL. WILL REPORT OFF TO ON COMING SHIFT.
[2019-10-19 19:58] VITALS: BP 125/79
[2019-10-19 20:45] VITALS: BP 125/79
--- NOTE | 2019-10-20 00:17 | NUR ---
PATIENT TOOK A SHOWER THIS EVENING AND THEN CAME OUT TO DINING ROOM FOR HS SNACK. HE SAT AND VISITED WITH 3 OTHER MALE PATIENTS AND WATCHED TV FOR ABOUT AN HOUR BEFORE RETURNING TO HIS ROOM FOR THE NIGHT. HE DENIES PAIN. HE STATES HE IS FEELING MORE POSITIVE AND ENERGIZED SINCE HE TOOK THE OLANZAPINE 5MG ON DAY SHIFT. HE STATES HE WANTS TO STAY POSITIVE AND IS FEELING HOPE NOW AND REMEMBERING GOOD THINGS. HE STATES HE WANTS TO KEEP GOOD THOUGHTS IN HIS MIND. PATIENT DID REFUSE HIS DICLOFENAC FOR HIS LEFT KNEE TONIGHT. HE HAS BEEN EUPHORIC TONIGHT AND COOPERATIVE. NEW ORDER RECEIVED TO BEGIN OLANZAPINE 2.5MG PO BID STARTING IN AM. PATIENT IS SLEEPING AT THIS TIME. ROUTINE ROUNDING TO ASSESS STATUS AND SAFETY OF PATIENT.
[2019-10-20 07:31] VITALS: BP 134/87
[2019-10-20 08:30] VITALS: BP 134/87
--- NOTE | 2019-10-20 09:08 | NUR ---
PT FINISHED BREAKFAST AT THIS TIME AND BACK TO BED. PT STATED HE HAS BEEN FEELING REALLY DEPRESSED LATELY. PT WANTING MEDICATION TO WORK. PT LBM 10/16 PT IS EATING AND TAKING MEDS WITHOUT ANY ISSUES. PT DOES SEEM ANXIOUS.
--- NOTE | 2019-10-20 11:34 | NUR ---
SW met with pt to complete the SLUMS last week and he scored a 14/30. SW completed the intake assessment but failed to enter into EHR timely. TP was completed today. Sw met with pt again today, as he declined the neuropsych testing yesterday. SW asked him about changing this living arrangements, and he would like to consider an RCF. SW reached out to [facility] to start the medicaid applicaiton and called [facility], and sent the referral there [phone]. Pt admits he's still not feeling better, d/c could be next week.
--- NOTE | 2019-10-20 12:01 | NUR ---
PT SITTING OUT IN DINING ROOM. PT STATED HE USED TO WORK AT A [employer]. PT STILL SEEMS A LITTLE NERVOUS.
--- NOTE | 2019-10-20 15:05 | NUR ---
PT COMPLIANT WITH MEDS AND ATTENDING GROUPS. PT KNOWS ABOUT BEING LOCKED OUT FOR GROUPS AND MEALS.
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
--- NOTE | 2019-10-20 17:05 | NUR ---
ADM LORAZEPAM 0.5MG PO FOR ANXIETY. PT HAS BEEN ASKING ALL DAY FOR SOMETHING FOR ANXIETY. DR. HATCH AWARE AND ORDERED ATIVAN X1.
[2019-10-20 20:08] VITALS: BP 138/84
[2019-10-20 21:00] VITALS: BP 138/84
--- NOTE | 2019-10-21 02:20 | NUR ---
PATIENT WAS UP IN DINING ROOM TONIGHT VISITING WITH OTHER MALE PATIENTS. HE HAS BEEN CALM AND RELAXED. HIS ANXIETY WAS DECREASED. HE DID BRING UP THAT THE COVID 19 SCARES HIM. WE TALKED ABOUT THAT AND DISCUSSED TRYING NOT TO LISTEN ALL THE TIME TO SOCIAL MEDIA ABOUT THIS AND TALKED ABOUT HOW TO KEEP HIMSELF SAFE BUT STILL LIVE HIS LIFE. PATIENT'S LEFT KNEE PAIN HAS DECREASED AND HE DID NOT WANT HIS DICLOFENAC GEL ANT 0000 APPLIED. HE STATES HE IS FEELING BETTER MORE OFTEN AND ABLE TO CHANGE HIS NEGATIVE THOUGHTS TO POSITIVE ONES BETTER THAN HE WAS. PATIENT TOOK HIS MEDS WHOLE WITH WATER TONIGHT. HE DENIES PAIN. NO SI/HI/AVH NOTED. PATIENT GAINED A ROOM MATE TONIGHT WITH MALE PATIENT HE WAS CURRENTLY VISITING WITH IN DINING ROOM. WILL SEE IF THIS WILL HELP KEEP HIS ANXIOUS THOUGHTS DECREASED. ROUTINE ROUNDING TO ASSESS STATUS AND SAFETY OF PATIENT.
[2019-10-21 07:53] VITALS: BP 118/80
--- NOTE | 2019-10-21 11:06 | NUR ---
Assumed care 0700. Pleasant, cooperative, med compliant. Self fed breakfast. Occasionally interacts with peers.
--- NOTE | 2019-10-21 11:15 | NUR ---
Denied SI/HI/AH/VH. Pleasant cooperative, compliant with unit rules. attending and participating in groups.
--- NOTE | 2019-10-21 19:09 | NUR ---
Patient is unhappy being here wants to be instantly fixed and not depressed. Says he does not like the food. He does not like it that there are elderly people here who "should be in nursing homes." He wants more things/groups to do during the day. Encouraged to get help from the [place] to make out the alternative menu. Nurse is going to review psychiatric meds with him.
[2019-10-21 19:29] VITALS: BP 136/81
--- NOTE | 2019-10-22 01:07 | NUR ---
Pt alert and oriented x4. Pt was in the dayroom at time of assessment. Pt was calm and cooperative with assessment. Pt stated having some anxiety and depression. Pt denies pain. pt denies SI/HI/VH/AH. Pt took meds whole as ordered. Pt ambulates independently. Pt was asking for hemmorroid cream. Pt does not have any ordered, pt notified and ok to hold off till daytime. Wll inform dayshift RN during report. Pt currently in bed sleeping.
[2019-10-22 07:17] VITALS: BP 123/86
--- NOTE | 2019-10-22 10:32 | NUR ---
Alert and isolating. Resistive to going to group this AM but did so after alot of encouragement. States he is depressed 10/10. Wants to stay in bed. Also states he feels groggy and may be overmedicated. Orientated X4, denies SI/HI. Lying on couch after breakfast. Breath sounds clear t/o. Reg HR auscultated. Color pink with brisk capillary refill and palpable peripheral pulses. No edema noted. Independent with voiding. Active bowel sounds over soft, flat abdomen. Regular, steady gait.
[2019-10-22 20:12] VITALS: BP 125/86
--- NOTE | 2019-10-23 05:54 | NUR ---
Assumed care of pt @ 1900. Alyssia calm et cooperative with pleasant demeanor this shift. Took medications whole without difficulty. Ambulates the halls ad lilliam with steady gait. VSWNL. Health assessment with no abnormalities noted at present time. Denies SI/HI at present time. Socialized in dayroom with peers until HS. Currently resting in bed with eyes closed. Will continue to monitor per protocol.
[2019-10-23 07:40] VITALS: BP 138/90
--- NOTE | 2019-10-23 09:38 | NUR ---
Yesterday, RAFAT met with Med Assist staff as they walked on the unit. Carly, and the person she is training, told RAFAT they were there to see pt. Pt's RAFAT was in a meeting with a psychiatrist at the time. RAFAT advised Med Assist to go ahead and visit with pt as this is for a Medicaid application. RAFAT also asked them to see RAFAT again as Carly was looking for a phone number for another pt of this SW. A few min. later, RAFAT looked for Med Assist staff and were advised that they left. RFAAT looked into pt's room and saw that pt was taking a nap. RAFAT contacted Carly with the phone number she needed. Carly advised that pt was asleep and there fore she was unable to complete pt's application at that time. RAFAT team will continue to follow pt during his stay on this unit.
[2019-10-23 10:12] VITALS: BP 138/90
--- NOTE | 2019-10-23 10:45 | NUR ---
RT Progress Note- Gordon has been present in all recreation therapy groups as he is on a room lockout d/t some resistance to attendance upon admission. Gordon socializes with select male peers in the milieu during meals and some of his down time. He frequently refers to hoping to return to "normal" and expresses some anxiety but no SI.
--- NOTE | 2019-10-23 12:35 | NUR ---
Followup: remains on [facility] unit. intake is variable 40-100% but will also drink the ensure supplements ordered. Wt is stable at 176 lb with weekly wts taken every Saturday. Pt without teeth and did not like the trial of [facility] altered diet so diet has been changed back to regular. Remains low nutrition risk
--- NOTE | 2019-10-23 15:13 | NUR ---
PATIENT WAS IN BED SLEEPING WHEN CARE ASSUMED, THIS LOG SORTER TRIED TO WAKE PATIET UP FOR BREAKFAST, HE CHOOSE NOT TO GET OUT OF BED " I DON'T EAT BREAFAST". PATIENT TOOK MEDICATION WHOLE WITHOUT DIFFICULTY, AND WENT BACK TO SLEEP. PATIENT DID GET OUT OF BED FOR LUNCH, APPETITE FAIR, HE IS DRINKING FLUID WELL. PATIENT DENIES SUICIDAL/HOMICIDAL IDEATION, HE RATED DEPRESSION 8/10, ANXIETY 5/10. PATIENT DENIES AUDITORY/VISUAL HALLUCINATION. AFFET IS FLAT/BLUNTED, MOOD IS EUTHYMIC. PATIENT RELUCTANTLY PARTICIPATES IN GROUP THERAPY. NO AGITATION OR AGGRESSIVE BEHAVIOR NOTED, NO SIGN OF ACUTE DISTRESS NOTED AT THIS TIME, WILL MONITOR FOR SAFETY.
[2019-10-23 20:17] VITALS: BP 134/74
--- NOTE | 2019-10-24 05:08 | NUR ---
Assumed care of pt @ 1900. Pt calm et cooperative this shift. Took medications whole without difficulty. Ambulates the halls ad lilliam with steady gait. Pt isolated in room most of shift. Spoke with pt at length due to an emotional crisis that he appeared to be having in the moment. The pt states that he is not happy with the care that he is getting from the physician here as he does not feel that the medications are working for him. Attempted to educate the pt that medications can sometimes take up to two full weeks to notice the effects. The pt verbalized understanding et demonstrated physically that his anxiety had lessened. VSWNL. Health assessment with no abnormalities noted at present time. Denies SI/HI at present time. Will continue to monitor per protocol.
[2019-10-24 07:06] VITALS: BP 121/80
--- NOTE | 2019-10-24 13:02 | NUR ---
Alert and orientated X4. States he remains depressed and is trying to get better. Denies SI/HI. Spends alot of time in room or in day room watching TV with peers. L knee painful this AM, requesting tylenol. States pain is sharp and sporadic mostly when he bears wt.
[2019-10-24 20:27] VITALS: BP 124/87
--- NOTE | 2019-10-25 05:05 | NUR ---
Assumed care of pt @ 1900. Pt calm et cooperative at present time. Took medications whole without difficulty. Ambulates the halls ad lilliam with steady gait. Spoke with pt at length about how he does not believe that the zyprexa is working for him et that he believes that he is still depressed. Informed pt that it does take some time for any psychiatric meds to see true therapeutic effects. Pt thanked this nurse for speaking with him et this nurse advised pt to ask for me if he needed to talk. Pt verbalized understanding. VSWNL. Health assessment with no abnormalities noted at present time. States that he does have SI but no plan. States that he was upset when he told the physician that he had thoughts, the physician said, "well why didn't you?" Explained to the pt that what the physician was asking was what was stopping him and what was his motivation for not killing himself. The pt then verbalized understanding of what was asked of him et states that his brother is a motivation for him to continue living. Denies HI at present time. Pt did socialize with peers in dayroom for a short amount of time during shift. Currently resting in bed with eyes closed. Will continue to monitor per protocol.
[2019-10-25 09:18] VITALS: BP 130/92
--- NOTE | 2019-10-25 14:06 | NUR ---
Assumed care 0700. Patient denies pain, SI/HI/AH/VH. He says he doesn't think he is getting any better. He said he needed a little more time to rest and wanted to skip breakfast. He was locked out of his room for lunch and encouraged to stay out of room longer. and socilize with peers.
--- NOTE | 2019-10-25 18:44 | NUR ---
Pt. was invited to the S.W. Group starting close to 152. patiet initially declined stating the doctor told him he did not have to go to the group. Upon nurse reporting back to the the patient eventually showed up at the Group and his door was locked until dinner time. He converses occasionally with peers and watched some TV. He offers no c/o pain. No physical concerns mentioned to this RN.
[2019-10-25 19:45] VITALS: BP 124/86
[2019-10-25 23:45] VITALS: BP 124/86
--- NOTE | 2019-10-26 02:48 | NUR ---
Assumed care of patient this pm shift. Patient calm and cooperative and in good spirits. Patient sitting in the mileu at the time of assessment. Patient denies pain. Patient denies hi/si. Patient has concerns about taking olanzapine. Patient feels like the olanzapine is making him irritable and anxious. RN stated that these concerns need to be discussed with the doctor. Patient is medication adherent and took all meds as prescribed. Patient is not a falls risk and ambulates with a steady gait. Patients assessment shows no signs of acute distress. We will continue monitoring patient per hospital protocol.
[2019-10-26 07:32] VITALS: BP 116/76
--- NOTE | 2019-10-26 08:34 | NUR ---
PT LAYING IN BED. PT DIDN'T EAT BREAKFAST. PT STATED HE FEELS TIRED, YET GOT 8.8 HOURS OF SLEEP. PT STATED HE FEELS LIKE HE DID SLEEP, NOT JUST LAYING IN BED AWAKE. PT TOOK MEDS WITHOUT ANY ISSUES. NO SI AT THIS TIME.
[2019-10-26 08:40] VITALS: BP 116/76
--- NOTE | 2019-10-26 12:09 | NUR ---
PT CAME OUT OF ROOM FOR LUNCH.
--- NOTE | 2019-10-26 14:08 | NUR ---
SW sent an email requesting that the medicaid application be completed today for a d/c latest on Sat to [facility]. Weekend Sw sent updates.
--- NOTE | 2019-10-26 15:38 | NUR ---
ADM MUSCLE RUB CREAM TO LEFT KNEE FOR PAIN. PT STAYING OUT OF ROOM TODAY WITH ROOM LOCK OUT.
[2019-10-26 19:34] VITALS: BP 127/78
--- NOTE | 2019-10-27 00:53 | NUR ---
Care of patient assumed at 1915. Patient is in the hallway attempting to avoid a peer. Patient relates frustration with peer invading his boundaries and constantly entering his room. Patient is irritable and complaining about everything he percieves as unfair or contrary to his treatment. Patient is cooperative with assessment. A/O x 4. HS, LS, BS normal. Endorses pain 6/10 in left knee. Given APAP with HS meds. During HS meds, patient asks "What about my Trazodone?" This nurse informs him that he has not been on Trazodone since 10/15. "How the hell am I supposed to sleep if you people take my sleeping meds away?" This nurse asks how he has been sleeping the past 10 nights. "OK I guess. I mean, I get plenty of sleep, but I still feel tired." This nurse explains to patient how Trazodone works, and that with the addition of Zyprexa, it could make him too sedated. Patient states he understands the teaching, but then starts yelling about how bad the doctor is. This nurse sits with patient and reinforces coping skills. Patient comes to nurse's station complaining about his room mate snoring and coughing. Room changes are made to promote rest.
[2019-10-27 07:55] VITALS: BP 116/65
--- NOTE | 2019-10-27 11:39 | NUR ---
SW recieved the medicaid application and faxed to [facility], they confirmed the d/c for 10/27 at 10 am.
--- NOTE | 2019-10-27 13:41 | NUR ---
DANIELA faxed the medicaid application to [facility] and confirmed the d/c for 10/28/19 at 10am. Daniela will set up a taxi transportation. Daniela called [facility] and confirmed this d/c and reported to the pt.
--- NOTE | 2019-10-27 14:31 | NUR ---
0700 ASSUMED CARE OF PATIENT, PATIENT LAYING IN BED AT THAT TIME. 0800 PATIENT COMTINUES TO LAY IN BED, UPKEEP MECHANIC ASKS PATIENT TO COME OUT FOR BREAKFAST TO THE DAYROOM. PATIENT STATES" I DO NOT WANT TO EAT OR COME OUT" UPKEEP MECHANIC REMINDED PATIENT OF ROOM LOCKOUT DURING BREAKFAST. A FEW MIN LATER PATIENT TO DAYROOM FOR BREAKFAST. PATIENT TAKES MEDICATION WHOLE WITHOUT DIFFICUTY. PATIENT LAYS ON COUCH, STAFF ASKED PATIENT TO SIT UP GROUP WILL BE STARTING AND OTHER WILL NEED TO SIT. PATIENT WAS TOLD MULTIPLE TIMES TO PLEASE SIT AND PT REFUSES. PATIENT WAS ASKED TO LEAVE GROUP AT THAT TIME. PATIENT SITS IN A DIFFRENT AREA IN DAYROOM, PATIENT LATER PARTICIPATES IN GROUP ACTIVITY. AFTER GROUP PATIENT TO DAYROOM. WILL CONTINUE TO OBSERVE.
[2019-10-27 19:49] VITALS: BP 109/68
--- NOTE | 2019-10-28 02:00 | NUR ---
Pt alert and oriented. Pt was in the dayroom watching tv at time of assessment. Pt was calm and cooeprative. Pt reported having some anxiety and depression. Voicing that fellow pts here gets on his nerve. Pt complained of L/Knee pain. Tylenol given for med. Pt tooks meds whole. MOM also given for constipation. Pt now in bed, sleeping. Will continue to monitor.
[2019-10-28 07:52] VITALS: BP 137/84
[2019-10-28] MEDS ORDERED: LIPITOR 20 MG T20 M1 PO (10:18)
[2019-10-28] MEDS ORDERED: NORVASC 2.5 MG2.5 M1 PO (10:19)
[2019-10-28] MEDS ORDERED: ADULT LOW DOSE81 MG PO (10:19)
[2019-10-28] MEDS ORDERED: GABAPENTIN 100100 MG PO (10:20)
[2019-10-28] MEDS ORDERED: LEXAPRO 10 MG T10 M1 PO (10:21)
[2019-10-28] MEDS ORDERED: COLACE 100 MG100 MG PO (10:22)
[2019-10-28] MEDS ORDERED: ZYPREXA 5 MG TAB5 M1 PO ×2 (10:22)
[2019-10-28] MEDS ORDERED: MIRALAX17 GM PO (10:23)
[2019-10-28] MEDS ORDERED: MAJOR-PREP HEMO57 G1 RECTAL (10:24)
--- NOTE | 2019-10-28 11:17 | NUR ---
Patient discharged from 5S unit at 1057 accompanied by staff with papers, belongings, cab voucher, and to get belongings from safe. He denied SI/HI/AH/VH. He was slightly nervous and was given Lorazepam prior to leaving for anxiety. [facility] has been called x 2 for report with no one yet returning call. He is glad to be discharging. Dr. Banks will call in RX's when [facility] returns the call to specify the name of the preferred pharmacy.Patient denied pain as he had not gotten out of bed early. He ate his breakfast late as he would not get up for regular breakfast time wanting to sleep in.
--- NOTE | 2019-10-28 11:35 | NUR ---
Addendum note: Report verbally given on the phone to Oneal SRIVASTAVA at [facility]. Their Pharmacy is [facility] at [phone]=number given to Dr. Banks via voicemail.
== END 2019-10-28 10:55 | disposition home or self-care (01) | DRG 885 ==
LOC: SBH 10:03
PROVIDERS: ADMIT Psychiatry & Neurology Psychiatry; ATTEND Psychiatry & Neurology Psychiatry
DX: F31.9 Bipolar disorder, unspecified (principal); R45.851 Suicidal ideations; F41.9 Anxiety disorder, unspecified; R41.9 Unspecified symptoms and signs involving cognitive functions and awareness; G47.00 Insomnia, unspecified; M17.12 Unilateral primary osteoarthritis, left knee; E78.5 Hyperlipidemia, unspecified; I10 Essential (primary) hypertension; G62.9 Polyneuropathy, unspecified; Z82.49 Family history of ischemic heart disease and other diseases of the circulatory system; Z87.891 Personal history of nicotine dependence; Z03.818 Encounter for observation for suspected exposure to other biological agents ruled out
CPT/HCPCS: 10880

== ENCOUNTER 2020-11-22 16:01 | Emergency (ER) | payer OTHER ==
[~2020-11-22] VITALS: Ht 172.7 cm; Wt 83.5 kg
--- NOTE | ~2020-11-22 | EMS ---
[address] [address] EMS Patient Care Report Name: KWABENA GENAO Room #: DEP HAL Cooper#: [id number] Admission: 11/22/20 Attend Phys: Discharge: 11/22/20 Date of : 46 Report #: [id number] THIS REPORT FOR: //name// Report Transmitted: 11/23/2020 12:26 EMS Care Summary [place], [place]/[facility] Incident [id number] @ 11/22/2020 15:03 Incident Location [address] [address] Patient KWABENA GENAO Male, 70 Years 1950 Patient Address [address] [address] Patient History Behavioral/Psychiatric Disorder,Hypertension (HTN),Bipolar II Disorder, Patient Allergies No known allergies, Patient Medications Amlodipine, Lisinopril, Cymbalta, Naproxen, Colace, Chief Complaint DEPRESSION Disposition Transported No Lights/[place] [facility] Reason Psychiatric Problem/Abnormal Behavior/Suicide Attempt Transported To [facility] Narrative M36 ARRIVED ON SCENE TO FIND A 70 YEAR OLD MALE STANDING TO TALKING TO [facility]. CREW MEMBERS WERE MET BY LAW ENFORCEMENT UPON ARRIVAL. PATIENT STATED TO CREW MEMBERS THAT HE HAS DEPRESSION AND HIS MEDICATION IS NOT HELPING. PATIENT ALSO STATED THAT THEY HAD SUICIDAL IDEATIONS WITH A PLAN TO RUN INTO TRAFFIC TO HARM [address] [address] EMS Patient Care Report Name: KWABENA GENAO Room #: DEP [facility]#: [id number] Admission: 11/22/20 Attend Phys: Discharge: 11/22/20 Date of : 46 Report #: [id number] THEMSELVES. PATIENT WAS AMBULATORY AND WALKED OF HIS OWN POWER TO THE AMBULANCE. ONCE IN THE AMBULANCE PATIENT SAT ON BENCH SEAT AND WAS SECURED TO BENCH SEAT WITH SAFETY BELTS. EN ROUTE TO FACILITY A FULL SET OF VITALS WERE TAKEN THAT WERE STABLE AND WITHIN NORMAL RANGES. ARRIVING AT HOSPITAL PATIENT WAS AMBULATORY AND WALKED OUT OF THE AMBULANCE AND FOLLOWED CREW MEMBERS INTO HOSPITAL EMERGENCY ROOM OF HIS OWN POWER. PATIENT FOLLOWED CREW MEMBERS TO HOSPITAL ROOM AND SAT ON HOSPITAL BED. A FULL REPORT WAS GIVEN TO RECEIVING MEDICAL STAFF AND M36 WENT BACK INTO SERVICE AT 1607 HOURS. Initial Vitals @15:37P: 99,R: 18,BP: 108/75,Pain: 0/10,GCS: 15,CO: 1,SpO2: 96,Revised Trauma: 12, @15:45P: 89,R: 16,BP: 118/56,Pain: 0/10,GCS: 15,SpO2: 97,Revised Trauma: 12, Assessments @15:42MENTAL:Person Oriented,Time Oriented,Place Oriented,Event Oriented,SKIN:HEENT:Head/Face: No Abnormalities,LUNG SOUNDS:General: No Abnormalities,ABDOMEN:General: No Abnormalities,PELVIS//GI:No Abnormalities,EXTREMITIES:Left Arm: No Abnormalities,Right Arm: No Abnormalities,Left Leg: No Abnormalities,Right Leg: No Abnormalities,PULSE:Radial: 2+ Normal,NEURO:No Abnormalities, Impression Behavioral/psychiatric episode Procedures @15:42ALS AssessmentResponse: UnchangedSucceeded@15:42BLS AssessmentResponse: Unchanged Timeline 14:59,Call Received 14:59,Dispatch Notified 15:03,Dispatched 15:04,En Route 15:33,On Scene 15:33,At Patient 15:37,BP: 108/75 M,PULSE: 99,RR: 18 R,SPO2: 96 Ox,ETCO2: ,BG: ,PAIN: 0,GCS: 15, 15:37,Depart Scene 15:42,ALS Assessment,Response: UnchangedSucceeded, 15:42,BLS Assessment,Response: Unchanged 15:45,BP: 118/56 M,PULSE: 89,RR: 16 R,SPO2: 97 Ox,ETCO2: ,BG: ,PAIN: 0,GCS: 15, 15:58,At Destination 16:07,Call Closed Disclaimer v1.1 Copyright 2020 [employer] [address] [address] EMS Patient Care Report Name: KWABENA GENAO Yessica Room #: [facility] Allison#: [id number] Admission: 11/22/20 Attend Phys: Discharge: 11/22/20 Date of : 46 Report #: [id number] This EMS Care Summary contains data elements from the applicable legal record (which may be displayed differently). It is designed to provide pertinent information for the following purposes: continuity of care, clinical quality, and state data reporting. The complete legal record is available to ED staff and administrators of the receiving hospital in [facility]'s Patient Tracker. All data is provided "as is."
[2020-11-22 16:01] VITALS: BP 119/73
[~2020-11-22 16:01] MED LIST changes: +ADULT LOW DOSE81 MG PO; +LEXAPRO 10 MG T10 M1 PO; +MAJOR-PREP HEMO57 G1 RECTAL; +MIRALAX17 GM PO
[2020-11-22 16:17] LABS: ABSOLUTE NEUTROPHILS 4.4 thou/uL (1.4-8.2); BASOPHILS 0.8 % (0.0-2.0); EOSINOPHILS 1.5 % (0.0-3.0); HEMATOCRIT 42.9 % (42.0-52.0); HEMOGLOBIN 14.4 gm/dL (14.0-18.0); LYMPHOCYTES 19.3 % (24.0-44.0); MCH 30.6 pg (26.0-34.0); MCHC 33.5 g/dL (28.0-37.0); MCV 91.4 fL (80.0-100.0); MONOCYTES 6.4 % (1.0-8.0); PLATELET COUNT 244 thou/uL (150-400); RBC 4.69 mil/uL (4.50-6.00); WBC 6.1 thou/uL (4.0-11.0)
[2020-11-22 16:19] LABS: URINE BILIRUBIN NEGATIVE (Negative); URINE BLOOD NEGATIVE (Negative); URINE CLARITY CLEAR; URINE COLOR YELLOW; URINE GLUCOSE-RANDOM* NEGATIVE (Negative); URINE KETONES NEGATIVE (Negative); URINE LEUKOCYTES-REFLEX NEGATIVE (Negative); URINE NITRITE-REFLEX NEGATIVE (Negative); URINE PROTEIN (DIPSTICK) NEGATIVE (Negative); URINE UROBILINOGEN 0.2 E.U./dl (0.2-1.0)
[2020-11-22 16:28] LABS: CALCIUM 9.7 mg/dL (8.5-10.1); POTASSIUM 4.5 mmol/L (3.5-5.1)
[2020-11-22 16:34] LABS: TOTAL BILIRUBIN 0.4 mg/dL (0.2-1.0); TOTAL PROTEIN 7.3 g/dL (6.4-8.2)
[2020-11-22 17:41] LABS: AMP/METHAMP Negative (Negative); BARBITURATES Negative (Negative); BENZODIAZEPINES Negative (Negative); COCAINE Negative (Negative); METHADONE Negative (Negative); OPIATES Negative (Negative); PCP Negative (Negative)
--- NOTE | 2020-11-23 08:27 | EKG ---
[place] [address] [employer] [facility] [place] [address] ELECTROCARDIOGRAM REPORT Name: KWABENA GENAO [id number] Admission: 11/22/20 Attend Phys: Discharge: 11/22/20 Date of : 46 Report #: [id number] [facility] ED Test Date: 2020-11-22 Test Time: 17:08:40 Pat Name: KWABENA GENAO Department: Room: Gender: Spool Sorter: ARABELLADIANA : 1950 Requested By: Ivana Landa Order Number: [id number] MD: Goran Mims Measurements Intervals [place] Rate: 75 P: -19 CT: 156 QRS: -5 QRSD: 91 T: 3 QT: 356 QTc: 398 Interpretive Statements Sinus rhythm No significant abnormality No previous ECG available for comparison Electronically Signed On 11-23-2020 8:27:16 CDT by Goran Mims [email or web address] <ELECTRONICALLY SIGNED> By: Goran Mims MD, [facility] 11/23/20 0827 1708 1708 Goran Mims MD, FAC /EPI
== END 2020-11-22 19:00 | disposition home or self-care (01) ==
LOC: ER 16:01
PROVIDERS: Emergency Medicine
DX: R45.851 Suicidal ideations (principal); Z20.822 Contact with and (suspected) exposure to COVID-19; I10 Essential (primary) hypertension; E78.00 Pure hypercholesterolemia, unspecified; M19.90 Unspecified osteoarthritis, unspecified site